=== PATIENT | female | born 1970 | race Caucasian/White ===

== ENCOUNTER 2018-07-14 16:01 | Emergency (ER) | payer SELFPAY, OTHER | END 2018-07-14 16:50 | disposition home or self-care (01) | LOC: ER 16:01 ==

== ENCOUNTER 2021-08-23 10:45 | Emergency (ER) | payer SELFPAY ==
[~2021-08-23] VITALS: Ht 154.9 cm; Wt 45.0 kg
[~2021-08-23 10:45] MED LIST: HYDR-4226 PO
[2021-08-23 11:10] LABS: HEMATOCRIT 42 % (35-52); HEMOGLOBIN 14.4 g/dL (11.5-16.0); MEAN CORPUSCULAR HEMOGLOBIN 34 pg (25-34); MEAN CORPUSCULAR HGB CONC 34 g/dL (32-36); MEAN CORPUSCULAR VOLUME 99 fL (80-99); MEAN PLATELET VOLUME 10.3 fL (9.0-12.2); PLATELET COUNT 177 10^3/uL (130-400)
[2021-08-23 11:23] LABS: ALBUMIN 4.4 GM/DL (3.2-4.5); POTASSIUM 4.3 MMOL/L (3.6-5.0)
--- NOTE | 2021-08-23 11:23 | ED Fall/Injury ---
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 PATIENT ALERT ON ADMIT. LACERATION TO BACK OF HEAD. LOG ROLLED WITH C SPINE PERCAUTIONS ON ADMIT. EXAM BY Source: patient, EMS, old records Exam Limitations: no limitations History of Present Illness Date Seen by Provider: Aug 23, 2021 Time Seen by Provider: 10:47 Initial Comments This 51-year-old woman presents to the emergency room via EMS after having a fall at her home. EMS reports she fell backward down approximately 5 stairs. On their arrival she was lying on the floor with her head and neck against a doorway. No loss of consciousness was reported. She has a wound to the right parietal scalp with according to EMS. It was minimally bleeding at the time of their assessment. It is presently wrapped with gauze and Coban. Patient is alert and oriented to person, month, place, and age. She is intoxicated. EMS reports that her significant other is "not doing well" and that her daughter was being arrested at the time of evaluation at her home. Patient admits to drinking daily. She has had numerous surgeries in the past but denies any significant medical problems. She reports drinking about a pint of whiskey today. She reports headache but denies any other pain. She states she cannot move her extremities but she actually demonstrates ability to move all 4 extremities by wiggling her fingers and toes. She retains sensation in all 4 extremities. She arrives in c-collar. Allergies and Home Medications Allergies Coded Allergies: No Known Drug Allergies (Unverified , 07/14/18) Patient Home Medication List Home Medication List Reviewed: Yes Hydrocodone/Acetaminophen (Hydrocodone/Acetaminophen 5 MG/325 MG TAB) 1 Each Tablet, 1 EACH PO Q4H PRN for PAIN-MODERATE Prescribed by: CARLTON ALEMAN on 07/14/18 1849 Review of Systems Review of Systems Constitutional: see HPI Eyes: No Symptoms Reported Ears, Nose, Mouth, Throat: no symptoms reported Respiratory: no symptoms reported Cardiovascular: no symptoms reported Gastrointestinal: no symptoms reported Genitourinary: no symptoms reported Musculoskeletal: see HPI Skin: see HPI Psychiatric/Neurological: See HPI Past Yklfvzj-Ufijhu-Tazxvr Hx Patient Social History Tobacco Use?: Yes Substance use?: No Alcohol Use?: Yes Alcohol type: Hard Liquor Alcohol Frequency: Daily Pt feels they are or have been: No Seasonal Allergies Seasonal Allergies: No Past Medical History Surgeries: Yes Bladder Surgery, Section, Nephrectomy, Tubal Ligation Respiratory: No Cardiac: No Neurological: No Genitourinary: Yes (Nephrectomy as a child) Gastrointestinal: No Musculoskeletal: No Endocrine: No HEENT: No Cancer: No Psychosocial: Yes Anxiety, Depression Integumentary: No Blood Disorders: No Physical Exam Vital Signs Vital Signs - First Documented 08/23/21 08/23/21 10:48 11:18 Temp 36.0 Pulse 70 Resp 18 B/P (MAP) 116/80 (92) Pulse Ox 95 O2 Delivery Room Air O2 Flow Rate 89.00 Capillary Refill : Height, Weight, BMI Height: 5'4.00" Weight: 105lbs. 0oz. [id number]; 18.00 BMI Method:Stated General Appearance: WD/WN, mild distress, thin HEENT: PERRL/EOMI, other (No apparent dental injury. Scalp is wrapped with Coban and gauze dressing. 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 Reports inability to move her extremities but can actually wiggle all fingers and toes and retains sensation of hands and feet) Skin: normal color, warm/dry Sharan Coma Score Best Eye Response: (4) Open Spontaneously Best Verbal Response: (5) Oriented Best Motor Response: (6) Obeys Commands Sharan Total: 15 Procedures/Interventions Wound Location: Scalp Other Wound Location Right posterior parietal scalp Wound Length (cm): 1.5 Wound Explored: no foreign body removed Irrigated w/ Saline (ccs): 100 Betadine Prep?: Yes Progress Clotted blood was carefully washed out of her hair with saline and chlorhexidine and sterile water. A wound about 1.5 cm in length was identified and was irrigated with saline and chlorhexidine. Hair was carefully teased away from the wound and it was stapled using 4 sony. Procedure was performed by Jen Perales MS 4 under my direct supervision. Betadine prep was applied before sony were inserted. Progress/Results/Core Measures Results/Orders Lab Results Laboratory Tests Test 08/23/21 11:04 Range/Units White Blood Count 8.0 4.3-11.0 10^3/uL Red Blood Count 4.28 3.80-5.11 10^6/uL Hemoglobin 14.4 11.5-16.0 g/dL Hematocrit 42 35-52 % Mean Corpuscular Volume 99 80-99 fL Mean Corpuscular Hemoglobin 34 25-34 pg Mean Corpuscular Hemoglobin Concent 34 32-36 g/dL Red Cell Distribution Width 12.1 10.0-14.5 % Platelet Count 177 130-400 10^3/uL Mean Platelet Volume 10.3 9.0-12.2 fL Sodium Level 135 135-145 MMOL/L Potassium Level 4.3 3.6-5.0 MMOL/L Chloride Level 99 98-107 MMOL/L Carbon Dioxide Level 22 21-32 MMOL/L Anion Gap 14 5-14 MMOL/L Blood Urea Nitrogen 10 7-18 MG/DL Creatinine 0.97 0.60-1.30 MG/DL Estimat Glomerular Filtration Rate 70 BUN/Creatinine Ratio 10 Glucose Level 78 70-105 MG/DL Calcium Level 9.8 8.5-10.1 MG/DL Total Bilirubin 0.3 0.1-1.0 MG/DL Direct Bilirubin 0.1 0.0-0.3 MG/DL Indirect Bilirubin 0.2 MG/DL Aspartate Amino Transf (AST/SGOT) 24 5-34 U/L Alanine Aminotransferase (ALT/SGPT) 13 0-55 U/L Alkaline Phosphatase 67 40-136 U/L Total Protein 8.1 6.4-8.2 GM/DL Albumin 4.4 3.2-4.5 GM/DL Serum Test, Qualitative NEGATIVE NEGATIVE Serum Alcohol 367 *H <10 MG/DL My Orders Orders - JIM HENRY MD Cbc No Diff (08/23/21 10:56) Basic Metabolic Panel (08/23/21 10:56) Liver Panel (08/23/21 10:56) Alcohol (08/23/21 10:56) Hcg,Qualitative Serum (08/23/21 10:56) End Tidal Co2 (08/23/21 10:56) Monitor-Rhythm Ecg Trace Only (08/23/21 10:56) Ed Iv/Invasive Line Start (08/23/21 10:56) Drug Screen Stat (Urine) (08/23/21 10:56) Ua Culture If Indicated (08/23/21 10:56) Ct Head/Cervical Spine Wo (08/23/21 10:56) Ct Thoracic/Lumbar Spine Wo (08/23/21 10:56) Ct Chest/Abdomen/Pelvis Wo (08/23/21 11:17) Ketorolac Injection (Toradol Injection) (08/23/21 12:45) Hand, Left, 3 Views (08/23/21 12:56) Dipht,Pertuss(Acell),Tet Adult (Boostrix (08/23/21 13:00) Medications Given in ED Current Medications Medications Dose Ordered Sig/Primo Route Start Time Stop Time Status Last Admin Dose Admin Diphtheria/ Tetanus/Acell Pertussis 0.5 ml ONCE ONCE IM 08/23/21 13:00 08/23/21 13:01 DC 08/23/21 13:04 0.5 ML Ketorolac Tromethamine 15 mg ONCE ONCE IVP 08/23/21 12:45 08/23/21 12:46 DC 08/23/21 12:58 15 MG Vital Signs/I&O 08/23/21 08/23/21 08/23/21 08/23/21 10:48 11:18 11:41 13:35 Temp 36.0 Pulse 70 65 72 Resp 18 18 18 B/P (MAP) 116/80 (92) 115/78 101/72 Pulse Ox 95 98 97 O2 Delivery Room Air Nasal Cannula Nasal Cannula Room Air O2 Flow Rate 89.00 2.00 Blood Pressure Mean: 92 Progress Progress Note #1: Time: 11:25 Progress Note Patient was seen and examined. [place] CT was ordered due to the nature of her trauma and her intoxicated status. After returning from CT we will assess her scalp wound further. Nasal cannula oxygen was applied as she had a minor desaturations when she would fall asleep. She is easily arousable. CT is being performed without contrast due to patient's history of nephrectomy. Progress Note #2: Time: 13:50 Progress Note No significant injuries were identified by CT with the exception of a hematoma on the scalp. C-collar was cleared although patient had removed her own c-collar prior to review of CT. Patient's conduct was at times uncooperative and she was throwing items in the room at one point in time. [place] police presented to the ER and considered taking her into custody for warrants. However, risk of withdrawal and possible concussion prevented them from taking her into custody. Patient was noted to have bruising and pain of the left hand. X-ray was obtained. She had an intra-articular fracture of the left fourth proximal phalanx. Splinting was recommended. Patient refused to have a splint applied. I informed her that inappropriate care of this fracture could cause chronic pain and dysfunction of the finger as it was an intra-articular fracture. Patient still refused and was upset that I would not provide her with any prescription pain medications. I explained that she would be at high risk using prescription pain medications due to her alcohol abuse, especially since she is already had a fall with injuries today related alcohol abuse. Patient still refused further care. She also refused to sign the AMA form. Patient was alert, oriented, and safely ambulatory prior to leaving AMA. Diagnostic Imaging Diagonstic Imaging: CT Plain Films/CT/US/NM/MRI: c-spine, head Comments CT head and cervical spine viewed by me and report reviewed. See report below: NAME: SABINE MALDONADO [facility] REC#: [id number] PT STATUS: REG ER : 1970 PHYSICIAN: JIM HENRY MD ADMIT DATE: 08/23/21/ER Draft Date of Exam:08/23/21 CT HEAD/CERVICAL SPINE WO PROCEDURE: CT head and CT cervical spine without contrast. TECHNIQUE: Multiple contiguous axial images were obtained through the brain and cervical spine without the use of intravenous contrast. Sagittal and coronal reformations through the cervical spine were then performed. Auto Exposure Controls were utilized during the CT exam to meet ALARA standards for radiation dose reduction. Indication: Fall with posterior head and neck pain. Struck back of head. Comparison: None. Discussion: Head: Posterior right scalp hematoma. No underlying skull fracture. No acute intracranial hemorrhage, mass, midline shift, hydrocephalus. The ventricles and sulci are normal size and configuration for age. The orbits, sinuses, mastoid air cells are unremarkable. Cervical spine: No significant degenerative disease. No fracture or subluxation. Alignment is anatomic. Soft tissues are unremarkable. Impression: 1. Posterior right scalp hematoma. No acute intracranial abnormality identified. 2. Negative cervical spine CT. Dictated on workstation # [id number] Dict: 08/23/21 1145 Trans: 08/23/21 1154 [id number] Interpreted by: LIZANDRO SHEFFIELD MD Diagonstic Imaging: CT Plain Films/CT/US/NM/MRI: other (CT thoracic and lumbar spine) Comments CT of thoracolumbar spine viewed by me and report reviewed. See report below: NAME: SABINE MALDONADO [facility] REC#: [id number] PT STATUS: REG ER : 1970 PHYSICIAN: JIM HENRY MD ADMIT DATE: 08/23/21/ER Signed Date of Exam:08/23/21 CT THORACIC/LUMBAR SPINE WO PROCEDURE: CT thoracic and lumbar spine without contrast. TECHNIQUE: Multiple contiguous axial images were obtained through the thoracic and lumbar spine without the use of intravenous contrast. Sagittal and coronal reformations were then performed. All CT scans use one or more of the following dose optimizing techniques: automated exposure control, MA and/or KvP adjustment based on a patient size and exam type, or iterative reconstruction. INDICATION: Fall, back pain. COMPARISON with a CT torso protocol dated 07/12/2019. T-spine: Thoracic vertebral statures are normal. The visualized posterior rib segments showed no acute abnormality. No paraspinal hemorrhage. There are old healed left posterior rib fractures from a remote injury. Lumbar spine: Lumbar statures are stable and normal. The alignment anatomic. No endplate or posterior element fracture. No paraspinal hemorrhage. The transverse processes and spinous processes intact. No change from prior. No acute finding. The visualized sacrum and SI joints nonacute. IMPRESSION: Intact thoracolumbar spine aligned anatomically. No acute finding. Dictated by: Dictated on workstation # [id number] Dict: 08/23/21 1148 Trans: 08/23/21 1222 [facility] [id number] Interpreted by: JOSE BAILEY Electronically signed by: JOSE BAILEY 08/23/21 1222 Diagonstic Imaging: CT Plain Films/CT/US/NM/MRI: chest, abdomen, pelvis Comments CT chest, abdomen and pelvis viewed by me and report reviewed. See report below: NAME: SABINE MALDONADO [facility] REC#: [id number] PT STATUS: REG ER : 1970 PHYSICIAN: JIM HENRY MD ADMIT DATE: 08/23/21/ER Draft Date of Exam:08/23/21 CT CHEST/ABDOMEN/PELVIS WO PROCEDURE: CT chest, abdomen, and pelvis without contrast. TECHNIQUE: Multiple contiguous axial images were obtained through the chest, abdomen, and pelvis without the use of intravenous contrast. Auto Exposure Controls were utilized during the CT exam to meet ALARA standards for radiation dose reduction. Indication: Chest and abdominal pain after falling backwards, reported EtOH. Comparison: None. Discussion: CHEST: Some atelectasis noted within the left lung base. The lungs are otherwise well-aerated. No consolidation or lesion. No pneumothorax. Normal heart size. No pleural or pericardial fluid. The thoracic aorta is normal in caliber and configuration. No adenopathy. Old appearing left-sided posterior rib fractures. No acute rib fracture identified. Abdomen/pelvis: The liver, gallbladder, pancreas, stomach, spleen, and adrenal glands are unremarkable. The right kidney is normal without stone or hydronephrosis. The left kidney is absent. The aorta is normal in caliber. The appendix is normal. The uterus and urinary bladder are unremarkable. Mild constipation. No obstruction, pneumatosis, pneumoperitoneum. No ascites or adenopathy. No acute osseous abnormality identified. Impression: 1. No acute abnormality identified within the chest, abdomen, or pelvis. Dictated on workstation # [id number] Dict: 08/23/21 1149 Trans: 08/23/21 1155 [id number] Interpreted by: LIZANDRO SHEFFIELD MD Diagonstic Imaging: Xray Plain Films/CT/US/NM/MRI: hand Comments Left hand x-ray viewed by me and report reviewed. See report below: NAME: SABINE MALDONADO [facility] REC#: [id number] PT STATUS: REG ER : 1970 PHYSICIAN: JIM HENRY MD ADMIT DATE: 08/23/21/ER Draft Date of Exam:08/23/21 HAND, LEFT, 3 VIEWS Indication: Left 4th finger pain and swelling after a fall. Comparison: None. Discussion: Three views of the left hand were obtained. There is a minimally displaced intra-articular fracture involving the radial base of the 4th proximal phalanx. No dislocation. No other fracture. Mild articular degenerative disease noted. Alignment is anatomic. No foreign body. Impression: 1. Mildly displaced intra-articular fracture involving the proximal base of the left 4th proximal phalanx. Dictated on workstation # [id number] Dict: 08/23/21 1310 Trans: 08/23/21 1313 [facility] [id number] Interpreted by: LIZANDRO SHEFFIELD MD Departure Impression Primary Impression: Fall down stairs Qualified Codes: W10.8XXA - Fall (on) (from) other stairs and steps, initial encounter Additional Impressions: Alcohol intoxication Qualified Codes: F10.929 - Alcohol use, unspecified with intoxication, unspecified Finger fracture, left Qualified Codes: S62.615A - Displaced fracture of proximal phalanx of left ring finger, initial encounter for closed fracture Left against medical advice Scalp laceration Qualified Codes: S01.01XA - Laceration without foreign body of scalp, initial encounter Scalp hematoma Qualified Codes: S00.03XA - Contusion of scalp, initial encounter Disposition: 07 AGAINST MEDICAL ADVICE Condition: Against Medical Advice Departure-Patient Inst. Referrals: JESENIA ACE DO (PCP/Family) Primary Care Physician Copy Copies To 1: JESENIA ACE JOSHUA T MD Aug 23, 2021 11:23
[2021-08-23 11:24] LABS: CALCIUM 9.8 MG/DL (8.5-10.1)
[2021-08-23 11:26] LABS: TOTAL PROTEIN 8.1 GM/DL (6.4-8.2)
[2021-08-23 11:27] LABS: BILIRUBIN,TOTAL 0.3 MG/DL (0.1-1.0)
[2021-08-23 11:29] LABS: CREATININE SERUM 0.97 MG/DL (0.60-1.30)
[2021-08-23 11:31] LABS: BILIRUBIN,DIRECT 0.1 MG/DL (0.0-0.3); BILIRUBIN,INDIRECT 0.2 MG/DL
--- NOTE | 2021-08-23 11:55 | Diagnostic Imaging Report ---
PROCEDURE: CT head and CT cervical spine without contrast. TECHNIQUE: Multiple contiguous axial images were obtained through the brain and cervical spine without the use of intravenous contrast. Sagittal and coronal reformations through the cervical spine were then performed. Auto Exposure Controls were utilized during the CT exam to meet ALARA standards for radiation dose reduction. Indication: Fall with posterior head and neck pain. Struck back of head. Comparison: None. Discussion: Head: Posterior right scalp hematoma. No underlying skull fracture. No acute intracranial hemorrhage, mass, midline shift, hydrocephalus. The ventricles and sulci are normal size and configuration for age. The orbits, sinuses, mastoid air cells are unremarkable. Cervical spine: No significant degenerative disease. No fracture or subluxation. Alignment is anatomic. Soft tissues are unremarkable. Impression: 1. Posterior right scalp hematoma. No acute intracranial abnormality identified. 2. Negative cervical spine CT. Dictated by: Dictated on workstation # [id number]
--- NOTE | 2021-08-23 11:56 | Diagnostic Imaging Report ---
PROCEDURE: CT chest, abdomen, and pelvis without contrast. TECHNIQUE: Multiple contiguous axial images were obtained through the chest, abdomen, and pelvis without the use of intravenous contrast. Auto Exposure Controls were utilized during the CT exam to meet ALARA standards for radiation dose reduction. Indication: Chest and abdominal pain after falling backwards, reported EtOH. Comparison: None. Discussion: CHEST: Some atelectasis noted within the left lung base. The lungs are otherwise well-aerated. No consolidation or lesion. No pneumothorax. Normal heart size. No pleural or pericardial fluid. The thoracic aorta is normal in caliber and configuration. No adenopathy. Old appearing left-sided posterior rib fractures. No acute rib fracture identified. Abdomen/pelvis: The liver, gallbladder, pancreas, stomach, spleen, and adrenal glands are unremarkable. The right kidney is normal without stone or hydronephrosis. The left kidney is absent. The aorta is normal in caliber. The appendix is normal. The uterus and urinary bladder are unremarkable. Mild constipation. No obstruction, pneumatosis, pneumoperitoneum. No ascites or adenopathy. No acute osseous abnormality identified. Impression: 1. No acute abnormality identified within the chest, abdomen, or pelvis. Dictated by: Dictated on workstation # [id number]
--- NOTE | 2021-08-23 11:57 | Diagnostic Imaging Report ---
PROCEDURE: CT thoracic and lumbar spine without contrast. TECHNIQUE: Multiple contiguous axial images were obtained through the thoracic and lumbar spine without the use of intravenous contrast. Sagittal and coronal reformations were then performed. All CT scans use one or more of the following dose optimizing techniques: automated exposure control, MA and/or KvP adjustment based on a patient size and exam type, or iterative reconstruction. INDICATION: Fall, back pain. COMPARISON with a CT torso protocol dated 07/12/2019. T-spine: Thoracic vertebral statures are normal. The visualized posterior rib segments showed no acute abnormality. No paraspinal hemorrhage. There are old healed left posterior rib fractures from a remote injury. Lumbar spine: Lumbar statures are stable and normal. The alignment anatomic. No endplate or posterior element fracture. No paraspinal hemorrhage. The transverse processes and spinous processes intact. No change from prior. No acute finding. The visualized sacrum and SI joints nonacute. IMPRESSION: Intact thoracolumbar spine aligned anatomically. No acute finding. Dictated by: Dictated on workstation # [id number]
[2021-08-23] MEDS ORDERED: KETOROLAC 30 MG/ML VIAL IVP ONE (12:45)
[2021-08-23] MEDS ORDERED: TETANUS,DIPTH,PERTUSS P/F (BOOSTRIX) 0.5 ML VIAL IM ONE (13:00)
--- NOTE | 2021-08-23 13:14 | Diagnostic Imaging Report ---
Indication: Left 4th finger pain and swelling after a fall. Comparison: None. Discussion: Three views of the left hand were obtained. There is a minimally displaced intra-articular fracture involving the radial base of the 4th proximal phalanx. No dislocation. No other fracture. Mild articular degenerative disease noted. Alignment is anatomic. No foreign body. Impression: 1. Mildly displaced intra-articular fracture involving the proximal base of the left 4th proximal phalanx. Dictated by: Dictated on workstation # [id number]
[2021-08-23 13:57] VITALS: BP 115/100
== END 2021-08-23 13:57 | disposition left against medical advice (07) ==
LOC: EDUNIT# 10:45 → ER 10:47
DX: S62.615A Displaced fracture of proximal phalanx of left ring finger, initial encounter for closed fracture (principal); S01.01XA Laceration without foreign body of scalp, initial encounter; F10.129 Alcohol abuse with intoxication, unspecified; Z72.0 Tobacco use; Z23 Encounter for immunization; W10.8XXA Fall (on) (from) other stairs and steps, initial encounter
CPT/HCPCS: 12001; 70450; 71250; 72125; 72128; 72131; 73130; 74176; 80048; 80076; 84703; 85027; 99284; G0480; 36415; 80320; 90715

== ENCOUNTER 2021-12-08 16:26 | Emergency (ER) | payer OTHER ==
[~2021-12-08] VITALS: Ht 162.5 cm; Wt 48.3 kg
--- NOTE | 2021-12-08 17:37 | ED General ---
General Chief Complaint: General Problems/Pain Stated Complaint: DOSEN'T FEEL GOOD, WEIRD AND ANXIETY Nursing Triage Note: Pt states that she had covid on November 24. Since then she has been taking her prednisone intermittently but has not had any for 5 days. She reports feeling anxious and tingling in her hands and feet since yesterday. Source of Information: Patient Exam Limitations: No Limitations (SHAZIA PEREZ MD) History of Present Illness Date Seen by Provider: Dec 08, 2021 Time Seen by Provider: 17:25 Initial Comments Patient is a 51-year-old female who presents to the emergency department today with a chief complaint of "feeling weird" she states she has intermittent "tingling" all over her body that has come and gone for the last 3 days. She reports that she was recently diagnosed with COVID about 2 weeks ago. She was started on what sounds like Paxil bed and dexamethasone. She states that she felt like she was having side effects of these medications have discontinued them. Her last doses were last . She denies chest pain or shortness of breath. No abdominal pain, nausea or vomiting. No fevers or chills. She denies illicit drug use. Her last alcohol use was "shocked" to see if she could improve her symptoms 2 days ago. She denies any alcohol use today. No burning with urination or abnormal vaginal discharge. No diarrhea. No swelling in her joints or extremities. She states she just feels "weird". All other review of systems reviewed and negative except as stated Timing/Duration: 2-3 Days Severity: Moderate Associated Systoms: Denies Symptoms (SHAZIA PEREZ MD) Allergies and Home Medications Allergies Coded Allergies: No Known Drug Allergies (Unverified , 07/14/18) Patient Home Medication List Home Medication List Reviewed: Yes (SHAZIA PEREZ MD) Hydrocodone/Acetaminophen (Hydrocodone/Acetaminophen 5 MG/325 MG TAB) 1 Each Tablet, 1 EACH PO Q4H PRN for PAIN-MODERATE Prescribed by: CARLTON ALEMAN on 07/14/18 3026 Review of Systems Review of Systems Constitutional: see HPI EENTM: no symptoms reported Cardiovascular: no symptoms reported Gastrointestinal: no symptoms reported Genitourinary: no symptoms reported Musculoskeletal: no symptoms reported Skin: no symptoms reported Psychiatric/Neurological: Anxiety (history of), Paresthesia (SHAZIA PEREZ MD) Past Ckcikqp-Ngrpew-Leljqs Hx Patient Social History Tobacco Use?: Yes Tobacco type used: Cigarettes Smoking Status: Current Everyday Smoker Use of E-Cig and/or Vaping dev: No Substance use?: No Alcohol Use?: Yes Alcohol type: Hard Liquor Alcohol Frequency: Couple times a week Pt feels they are or have been: No (SHAZIA PEREZ MD) Seasonal Allergies Seasonal Allergies: No (SHAZIA PEREZ MD) Past Medical History Surgeries: Yes Bladder Surgery, Section, Nephrectomy, Tubal Ligation Respiratory: No Cardiac: No Neurological: No Genitourinary: Yes (Nephrectomy as a child) Gastrointestinal: No Musculoskeletal: No Endocrine: No HEENT: No Cancer: No Psychosocial: Yes Anxiety, Depression Integumentary: No Blood Disorders: No (SHAZIA PEREZ MD) Physical Exam Vital Signs Vital Signs - First Documented 12/08/21 17:11 Temp 36.7 Pulse 75 Resp 16 B/P (MAP) 129/85 (100) Pulse Ox 99 O2 Delivery Room Air (KIESHA GUY APRN) Vital Signs Capillary Refill : Less Than 3 Seconds (SHAZIA PEREZ MD) Height, Weight, BMI Height: 5'4.00" Weight: 105lbs. 0oz. 47.243252gx; 18.00 BMI Method:Stated General Appearance: Anxious (SHAZIA PEREZ MD) Progress/Results/Core Measures Suspected Sepsis SIRS Temperature: Pulse: 75 Respiratory Rate: 16 Blood Pressure 129 /85 Mean: 100 (SHAZIA PEREZ MD) Results/Orders Lab Results Laboratory Tests Test 12/08/21 18:11 Range/Units Sodium Level 133 L 135-145 MMOL/L Potassium Level 4.6 3.6-5.0 MMOL/L Chloride Level 99 98-107 MMOL/L Carbon Dioxide Level 23 21-32 MMOL/L Anion Gap 11 5-14 MMOL/L Blood Urea Nitrogen 16 7-18 MG/DL Creatinine 0.81 0.60-1.30 MG/DL Estimat Glomerular Filtration Rate 87 BUN/Creatinine Ratio 20 Glucose Level 78 70-105 MG/DL Calcium Level 8.5 8.5-10.1 MG/DL (KIESHA GUY APRN) Vital Signs/I&O 12/08/21 17:11 Temp 36.7 Pulse 75 Resp 16 B/P (MAP) 129/85 (100) Pulse Ox 99 O2 Delivery Room Air (KIESHA GUY APRN) Vital Signs/I&O Capillary Refill : Less Than 3 Seconds (SHAZIA PEREZ MD) Blood Pressure Mean: 100 Departure Impression Primary Impression: Paresthesia Disposition: 01 HOME, SELF-CARE Condition: Stable Departure-Patient Inst. Decision time for Depature: 17:47 (SHAZIA PEREZ MD) Referrals: JESENIA ACE DO (PCP/Family) Primary Care Physician Patient Instructions: Paresthesia (DC) Add. Discharge Instructions: Drink plenty of fluids to stay well-hydrated. Your symptoms should resolve over the course of the next couple of days. If you develop any new symptoms such as shortness of breath, pain or fever ple ase return to the emergency room for reevaluation. Please call your primary care physician and follow-up within the week. Work/School Note: Work Release Form Date Seen in the Emergency Department: Dec 08, 2021 Return to Work: Dec 10, 2021 Restrictions: No Restrictions Copy Copies To 1: JESENIA ACE KATHRYN M MD Dec 08, 2021 17:36 KIESHA GUY APRN Dec 08, 2021 18:54
[2021-12-08 18:43] LABS: POTASSIUM 4.6 MMOL/L (3.6-5.0)
[2021-12-08 18:44] LABS: CALCIUM 8.5 MG/DL (8.5-10.1)
[2021-12-08 18:48] LABS: CREATININE SERUM 0.81 MG/DL (0.60-1.30)
[2021-12-08 19:01] VITALS: BP 128/84
== END 2021-12-08 19:03 | disposition home or self-care (01) ==
LOC: EDUNIT# 16:26 → ER 16:32
DX: R20.2 Paresthesia of skin (principal); T38.0X6A Underdosing of glucocorticoids and synthetic analogues, initial encounter; F17.210 Nicotine dependence, cigarettes, uncomplicated; Z91.128 Patient's intentional underdosing of medication regimen for other reason; Z79.899 Other long term (current) drug therapy; Z86.16 Personal history of COVID-19
CPT/HCPCS: 36415; 80048; 99281

== ENCOUNTER 2022-03-13 19:13 | Emergency (ER) | payer SELFPAY ==
[~2022-03-13] VITALS: Ht 163 cm; Wt 49.0 kg
--- NOTE | 2022-03-13 20:09 | ED Psychosocial ---
General Chief Complaint: Substance Abuse Stated Complaint: FATIGUE/ANXIOUS/AMS Nursing Triage Note: fatigue, anxiety reports drinking 2 shots q5hrs Source: patient, family Exam Limitations: no limitations History of Present Illness Date Seen by Provider: Mar 13, 2022 Time Seen by Provider: 19:45 Initial Comments Pt is a 51 yo F who presents to the ED with altered mental status, "being in and out of consciousness", and anxiety. Patient states she had some alcohol today but is unable to quantify how much. 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 Patient denies any drug use. No headache, chest pain, shortness of breath. Denies SI/HI/AVH. Has not seen a provider in "a long time". Does not see anyone for her anxiety. Timing/Duration: this morning Associated Symptoms: anxiety, suicidal ideation Allergies and Home Medications Allergies Coded Allergies: No Known Drug Allergies (Unverified , 07/14/18) Patient Home Medication List Home Medication List Reviewed: Yes Hydroxyzine HCl (Hydroxyzine HCl) 25 Mg Tablet, 25 MG PO Q8H PRN for ANXIETY Prescribed by: Nanci Jefferson on 03/13/222051 Discontinued Medications Hydrocodone/Acetaminophen (Hydrocodone/Acetaminophen 5 MG/325 MG TAB) 1 Each Tablet, 1 EACH PO Q4H PRN for PAIN-MODERATE Discontinued Reason: No Longer Taking Prescribed by: CARLTON ALEMAN on 07/14/18 1636 Last Action: Discontinued Review of Systems Constitutional: no symptoms reported EENTM: no symptoms reported Respiratory: no symptoms reported Cardiovascular: no symptoms reported Gastrointestinal: no symptoms reported Genitourinary: no symptoms reported Musculoskeletal: no symptoms reported Skin: no symptoms reported Psychiatric/Neurological: No Symptoms Reported Past Apirapw-Phukqd-Ltdrsm Hx Patient Social History Tobacco Use?: Yes Substance use?: No Alcohol Use?: Yes Alcohol Frequency: Daily Pt feels they are or have been: No Seasonal Allergies Seasonal Allergies: No Past Medical History Surgery/Hospitalization HX: nephrectomy, tubal, , bladder, anxiety, depression Surgeries: Yes Bladder Surgery, Section, Nephrectomy, Tubal Ligation Respiratory: No Cardiac: No Neurological: No Genitourinary: Yes (Nephrectomy as a child) Gastrointestinal: No Musculoskeletal: No Endocrine: No HEENT: No Cancer: No Psychosocial: Yes Anxiety, Depression Integumentary: No Blood Disorders: No Physical Exam Vital Signs - First Documented 03/13/22 19:27 Temp 36.6 Pulse 82 Resp 16 B/P (MAP) 149/97 (114) Pulse Ox 95 O2 Delivery Room Air Capillary Refill : Less Than 3 Seconds Height, Weight, BMI Height: 5'4.00" Weight: 105lbs. 0oz. 47.878741od; 18.00 BMI Method:Stated General Appearance: WD/WN, no apparent distress HEENT: PERRL/EOMI, normal ENT inspection, TMs normal, pharynx normal Neck: non-tender, full range of motion, supple, normal inspection Respiratory: chest non-tender, lungs clear, normal breath sounds, no respiratory distress, no accessory muscle use Cardiovascular: normal peripheral pulses, regular rate, rhythm, no edema, no gallop, no JVD, no murmur Gastrointestinal: normal bowel sounds, non tender, soft, no organomegaly, no pulsatile mass Extremities: normal range of motion, non-tender, normal inspection, no pedal edema, no calf tenderness, normal capillary refill Neurologic/Psychiatric: venetian blind assembler II-XII nml as tested, no motor/sensory deficits, alert, normal mood/affect, oriented x 3 Appearance/Memory: disheveled Behavior/Eye Contact: avoids eye contact Skin: normal color, warm/dry Progress/Results/Core Measures Results/Orders Lab Results Laboratory Tests Test 03/13/22 19:52 Range/Units White Blood Count 6.1 4.3-11.0 10^3/uL Red Blood Count 4.28 3.80-5.11 10^6/uL Hemoglobin 14.3 11.5-16.0 g/dL Hematocrit 41 35-52 % Mean Corpuscular Volume 96 80-99 fL Mean Corpuscular Hemoglobin 33 25-34 pg Mean Corpuscular Hemoglobin Concent 35 32-36 g/dL Red Cell Distribution Width 12.3 10.0-14.5 % Platelet Count 84 L 130-400 10^3/uL Mean Platelet Volume 9.5 9.0-12.2 fL Immature Granulocyte % (Auto) 0 % Neutrophils (%) (Auto) 45 42-75 % Lymphocytes (%) (Auto) 45 H 12-44 % Monocytes (%) (Auto) 7 0-12 % Eosinophils (%) (Auto) 2 0-10 % Basophils (%) (Auto) 1 0-10 % Neutrophils # (Auto) 2.8 1.8-7.8 10^3/uL Lymphocytes # (Auto) 2.8 1.0-4.0 10^3/uL Monocytes # (Auto) 0.4 0.0-1.0 10^3/uL Eosinophils # (Auto) 0.1 0.0-0.3 10^3/uL Basophils # (Auto) 0.1 0.0-0.1 10^3/uL Immature Granulocyte # (Auto) 0.0 0.0-0.1 10^3/uL Percent Immature Platelet Fraction 4.0 0.0-7.6 % Sodium Level 136 135-145 MMOL/L Potassium Level 3.8 3.6-5.0 MMOL/L Chloride Level 97 L 98-107 MMOL/L Carbon Dioxide Level 24 21-32 MMOL/L Anion Gap 15 H 5-14 MMOL/L Blood Urea Nitrogen 11 7-18 MG/DL Creatinine 0.93 0.60-1.30 MG/DL Estimat Glomerular Filtration Rate 74 BUN/Creatinine Ratio 12 Glucose Level 89 70-105 MG/DL Calcium Level 9.2 8.5-10.1 MG/DL Corrected Calcium 8.5-10.1 MG/DL Total Bilirubin 0.4 0.1-1.0 MG/DL Aspartate Amino Transf (AST/SGOT) 35 H 5-34 U/L Alanine Aminotransferase (ALT/SGPT) 16 0-55 U/L Alkaline Phosphatase 65 40-136 U/L Total Protein 7.9 6.4-8.2 GM/DL Albumin 4.7 H 3.2-4.5 GM/DL Serum Alcohol 316 *H <10 MG/DL My Orders Orders - NANCI JEFFERSON [employer] Cbc With Automated Diff (03/13/22 19:44) Comprehensive Metabolic Panel (03/13/22 19:44) Alcohol (03/13/22 19:44) Drug Screen Stat (Urine) (03/13/22 19:44) Ekg Tracing (03/13/22 19:44) Vital Signs/I&O 03/13/22 19:27 Temp 36.6 Pulse 82 Resp 16 B/P (MAP) 149/97 (114) Pulse Ox 95 O2 Delivery Room Air Blood Pressure Mean: 114 Progress Progress Note : Progress Note Patient is nontoxic and well hydrated on exam. No focal neurologic deficits on exam. Vital signs are reassuring. Laboratory evaluation unremarkable other than ETOH level of 312. She was unwilling to provide a urine sample. Will d/c home with recs for supportive care and follow-up with PCP for persistent symptoms. Patient was given a prescription for hydroxyzine for anxiety. Return precautions for urgent symptomology discussed. Patient verbalized understanding. EKG : EKG Time: 19:52 Rate: 72 Rhythm: Normal Sinus Intervals: Normal ECG Impression: Normal Departure Impression Primary Impression: Alcohol intoxication Qualified Codes: F10.920 - Alcohol use, unspecified with intoxication, uncomplicated Additional Impression: Anxiety Disposition: 01 HOME, SELF-CARE Condition: Stable Departure-Patient Inst. Decision time for Depature: 20:50 Referrals: JESENIA ACE DO (PCP/Family) Primary Care Physician Patient Instructions: Alcohol Use Disorder (DC) Scripts Hydroxyzine HCl (Hydroxyzine HCl) 25 Mg Tablet 25 MG PO Q8H PRN for ANXIETY for 14 Days, #30 TAB Prov: NANCI JEFFERSON APRN 03/13/22 NANCI JEFFERSON APRN Mar 13, 2022 20:08
[2022-03-13 20:13] LABS: HEMOGLOBIN 14.3 g/dL (11.5-16.0); MEAN PLATELET VOLUME 9.5 fL (9.0-12.2); MONOCYTES % (AUTO) 7 % (0-12)
[2022-03-13 20:15] LABS: BASOPHILS # (AUTO) 0.1 10^3/uL (0.0-0.1); BASOPHILS % (AUTO) 1 % (0-10); EOSINOPHILS # (AUTO) 0.1 10^3/uL (0.0-0.3); EOSINOPHILS % (AUTO) 2 % (0-10); HEMATOCRIT 41 % (35-52); LYMPHOCYTES # (AUTO) 2.8 10^3/uL (1.0-4.0); LYMPHOCYTES % (AUTO) 45 % (12-44); MEAN CORPUSCULAR HEMOGLOBIN 33 pg (25-34); MEAN CORPUSCULAR HGB CONC 35 g/dL (32-36); MEAN CORPUSCULAR VOLUME 96 fL (80-99); MONOCYTES # (AUTO) 0.4 10^3/uL (0.0-1.0); NEUTROPHILS # (AUTO) 2.8 10^3/uL (1.8-7.8); NEUTROPHILS % (AUTO) 45 % (42-75); PLATELET COUNT 84 10^3/uL (130-400); WHITE BLOOD COUNT 6.1 10^3/uL (4.3-11.0)
[2022-03-13 20:22] LABS: ALBUMIN 4.7 GM/DL (3.2-4.5)
[2022-03-13 20:24] LABS: CALCIUM 9.2 MG/DL (8.5-10.1)
[2022-03-13 20:25] LABS: GLUCOSE 89 MG/DL (70-105); TOTAL PROTEIN 7.9 GM/DL (6.4-8.2)
[2022-03-13 20:26] LABS: CARBON DIOXIDE 24 MMOL/L (21-32)
[2022-03-13 20:27] LABS: BILIRUBIN,TOTAL 0.4 MG/DL (0.1-1.0)
[2022-03-13 20:28] LABS: ALKALINE PHOSPHATASE 65 U/L (40-136)
[2022-03-13 20:29] LABS: CHLORIDE 97 MMOL/L (98-107); CREATININE SERUM 0.93 MG/DL (0.60-1.30); GFR ESTIMATED 74; POTASSIUM 3.8 MMOL/L (3.6-5.0); SODIUM 136 MMOL/L (135-145)
[2022-03-13 20:30] LABS: BUN/CREATININE RATIO 12
[2022-03-13 20:31] LABS: ALANINE AMINOTRANSFERASE 16 U/L (0-55)
[2022-03-13] MEDS ORDERED: HYDR-700 PO (20:52)
[2022-03-13 20:54] VITALS: BP 119/86
== END 2022-03-13 20:56 | disposition home or self-care (01) ==
LOC: EDUNIT# 19:13 → ER 19:17
DX: F10.929 Alcohol use, unspecified with intoxication, unspecified (principal); F41.9 Anxiety disorder, unspecified; Z87.891 Personal history of nicotine dependence
CPT/HCPCS: 80053; 85025; 99283; G0480; 36415; 80320

== ENCOUNTER 2022-09-12 13:42 | Emergency (ER) | payer SELFPAY ==
[~2022-09-12] VITALS: Ht 162 cm; Wt 47.0 kg
[~2022-09-12 13:42] MED LIST changes: +HYDR-700 PO
--- NOTE | 2022-09-12 14:06 | ED Lower Extremity ---
General Chief Complaint: Lower Extremity Stated Complaint: RT KNEE/ANKLE PAIN Source: patient, family (mother) Exam Limitations: no limitations History of Present Illness Date Seen by Provider: Sep 12, 2022 Time Seen by Provider: 13:50 Initial Comments Patient is a 52-year-old female who presents to the emergency room with a chief complaint of right foot pain. Patient states that late night early Wednesday morning she was getting up to go to the bathroom when she had a syncopal event. She states when she was getting up she felt nauseous and was trying to palomares to the bathroom. She was able to get her mother awake and when mother got her up to go into the living room she had another brief syncopal event. She was able to go to bed and work for several hours yesterday. She noticed today that her foot is very swollen and much more painful to walk on. She denies knee or hip pain. As far as the syncope she has no symptoms currently. No headache, dizziness, chest pain or shortness of breath. She has no nausea, vomiting or diarrhea. Normal urination. No recent illnesses. She is unsure why she passed out but states that she feels better. Only concern now is the swelling and discomfort in her right foot. Negative past medical history. Smoker. She smells like alcohol today. Onset: other (36hours ago) Severity: severe ("8") Pain/Injury Location: right foot Method of Injury: fell Modifying Factors: Improves With Immobilization, Improves With Rest Allergies and Home Medications Allergies Coded Allergies: No Known Drug Allergies (Unverified , 07/14/18) Patient Home Medication List Home Medication List Reviewed: Yes Hydrocodone/Acetaminophen (Hydrocodone-Acetamin 5-325 mg) 5 Mg-325 Mg Tablet, 1 TAB PO Q6 PRN for PAIN-MODERATE (5-7) Prescribed by: SHAZIA PEREZ on 09/12/22 152 Hydroxyzine HCl (Hydroxyzine HCl) 25 Mg Tablet, 25 MG PO Q8H PRN for ANXIETY Prescribed by: Ángel Jefferson on 03/13/222051 Review of Systems Constitutional: see HPI Respiratory: no symptoms reported Cardiovascular: no symptoms reported Gastrointestinal: no symptoms reported Genitourinary: no symptoms reported : No Musculoskeletal: joint pain (right foot pain and swelling) Skin: no symptoms reported Psychiatric/Neurological: No Symptoms Reported All Other Systems Reviewed Negative Unless Noted: Yes Past Ilsyzus-Etcldx-Cqgxzg Hx Seasonal Allergies Seasonal Allergies: No Past Medical History Surgery/Hospitalization HX: nephrectomy, tubal, , bladder, anxiety, depression Surgeries: Yes Bladder Surgery, Section, Nephrectomy, Tubal Ligation Respiratory: No Cardiac: No Neurological: No Genitourinary: Yes (Nephrectomy as a child) Gastrointestinal: No Musculoskeletal: No Endocrine: No HEENT: No Cancer: No Psychosocial: Yes Anxiety, Depression Integumentary: No Blood Disorders: No Physical Exam Vital Signs Vital Signs - First Documented 09/12/22 13:54 Temp 36.2 Pulse 76 Resp 17 B/P (MAP) 144/87 (106) Pulse Ox 97 O2 Delivery Room Air Capillary Refill : Height, Weight, BMI Height: 5'4.00" Weight: 105lbs. 0oz. 47.085962eb; 18.00 BMI Method:Stated General Appearance: WD/WN, no apparent distress HEENT: PERRL/EOMI Cardiovascular: regular rate, rhythm Respiratory: lungs clear, normal breath sounds Hips: bilateral hip non-tender, bilateral hip normal inspection, bilateral hip normal range of motion, bilateral hip no evidence of injury Legs: bilateral leg non-tender, bilateral leg normal inspection, bilateral leg normal range of motion, bilateral leg no evidence of injury Knees: bilateral knee non-tender, bilateral knee normal inspection, bilateral knee normal range of motion, bilateral knee no evidence of injury Ankles: bilateral ankle non-tender, bilateral ankle normal inspection, bilateral ankle normal range of motion, bilateral ankle no evidence of injury Feet: left foot non-tender, left foot normal inspection, left foot normal range of motion, left foot no evidence of injury; right foot bone tenderness (diffusely), right foot limited range of motion, right foot soft tissue tenderness, right foot swelling Neurologic/Tendon: normal sensation, normal motor functions Neurologic/Psychiatric: alert, normal mood/affect, oriented x 3 Skin: ecchymosis (over right foot) Progress/Results/Core Measures Results/Orders My Orders Orders - SHAZIA PEREZ MD Foot, Right, 3 View (09/12/22 14:04) Vital Signs/I&O 09/12/22 09/12/22 13:54 15:35 Temp 36.2 36.2 Pulse 76 77 Resp 17 18 B/P (MAP) 144/87 (106) 119/83 Pulse Ox 97 98 O2 Delivery Room Air Room Air Progress Progress Note : Time: 15:43 Progress Note Patient placed in a walking boot, referral to Dr. Hdz. 5 mg hydrocodone #10 given for pain. Diagnostic Imaging Diagonstic Imaging: Xray Comments [facility], [place] NAME: SABINE MALDONADO [facility] REC#: [id number] PT STATUS: REG ER : 1970 PHYSICIAN: SHAZIA PEREZ MD ADMIT DATE: 09/12/22/ER Draft Date of Exam:09/12/22 FOOT, RIGHT, 3 VIEW INDICATION: Fall, with pain and swelling to the right foot. TIME OF EXAM: 2:18 p.m. FINDINGS: Three views of the right foot were obtained. There is a lucency in the region of the medial aspect of the navicular, suspicious for a nondisplaced fracture. Remaining tarsal bones are intact. The metatarsals and phalanges are intact. Hindfoot is unremarkable. IMPRESSION: Findings suspicious for a nondisplaced fracture of the navicular bone. Clinical correlation to tenderness in this location is recommended. No other abnormality is seen. Dictated on workstation # [id number] Dict: 09/12/22 1421 Trans: 09/12/22 1424 [id number] Interpreted by: ADRI ACEVEDO MD Electronically signed by: Departure Impression Primary Impression: Fx navicular, foot-closed Qualified Codes: S92.254A - Nondisplaced fracture of navicular [scaphoid] of right foot, initial encounter for closed fracture Disposition: HOME, SELF-CARE Condition: Stable Departure-Patient Inst. Decision time for Depature: 15:08 Referrals: NO,LOCAL PHYSICIAN (PCP) Primary Care Physician JAZMINE HDZ MD Patient Instructions: Foot Fracture ED Add. Discharge Instructions: Wear the walking boot for comfort. When you are at rest, you can take off the boot and elevate your foot to decrease swelling. Use ice packs as well. Please call Dr Hdz's office first thing wednesday morning, he will likely place you in a proper cast. Take ibuprofen 3 pills (WITH FOOD) every 6 hours as needed for pain. Return to the Emergency Department for any new, concerning or emergent complai nts. Scripts Hydrocodone/Acetaminophen (Hydrocodone-Acetamin 5-325 mg) 5 Mg-325 Mg Tablet 1 TAB PO Q6 PRN for PAIN-MODERATE (5-7), #10 TAB Prov: SHAZIA PEREZ MD 09/12/22 Work/School Note: Work Release Form Date Seen in the Emergency Department: Sep 12, 2022 Return to Work: Sep 14, 2022 Copy Copies To 1: JAZMINE HDZ MD, KATHRYN M MD Sep 12, 2022 14:06
--- NOTE | 2022-09-12 14:24 | Diagnostic Imaging Report ---
INDICATION: Fall, with pain and swelling to the right foot. TIME OF EXAM: 2:18 p.m. FINDINGS: Three views of the right foot were obtained. There is a lucency in the region of the medial aspect of the navicular, suspicious for a nondisplaced fracture. Remaining tarsal bones are intact. The metatarsals and phalanges are intact. Hindfoot is unremarkable. IMPRESSION: Findings suspicious for a nondisplaced fracture of the navicular bone. Clinical correlation to tenderness in this location is recommended. No other abnormality is seen. Dictated by: Dictated on workstation # [id number]
[2022-09-12] MEDS ORDERED: ACHD5005 PO (15:26)
[2022-09-12 15:35] VITALS: BP 119/83
== END 2022-09-12 15:35 | disposition home or self-care (01) ==
LOC: EDUNIT# 13:42 → ER 13:45
DX: S92.254A Nondisplaced fracture of navicular [scaphoid] of right foot, initial encounter for closed fracture (principal); W18.30XA Fall on same level, unspecified, initial encounter; Y92.002 Bathroom of unspecified non-institutional (private) residence as the place of occurrence of the external cause
CPT/HCPCS: 73630